=== PATIENT | female | born 1975 | race Caucasian/White ===

== ENCOUNTER 2022-01-22 15:47 | Outpatient (CLI) | payer MEDICAID, SELFPAY ==
--- NOTE | 2022-01-22 16:30 | CRLHL7_ITS ---
For Patients: As a result of the Century Cures Act, medical imaging exams and procedure reports are released immediately into your electronic medical record. You may view this report before your referring provider. If you have questions, please contact your health care provider. HISTORY: Knee pain. Decreased range of motion. TECHNIQUE: MRI right knee without contrast. COMPARISON: None. FINDINGS: Medial compartment: Medial meniscus: Borderline extruded but otherwise appears intact. Articular cartilage: No cartilage defects. Lateral compartment: Lateral meniscus: Tear of the anterior horn and anterior aspect of the body. Meniscus flap displaced superior to the body anterior horn junction. Meniscus has incomplete discoid morphology. Posterior horn is intact. Articular cartilage: No cartilage defects. Patellofemoral compartment: No cartilage defects. Ligaments: ACL: Intact. PCL: Intact. MCL: Intact. Lateral ligament complex: Intact. Extensor mechanism: Distal quadriceps and patellar tendons are intact. Medial and lateral patellar restraints are intact. No patellar subluxation. Joint space: Moderate size effusion. Mild synovitis. No joint bodies. Bones and soft tissues: No fracture. No marrow replacing process. No popliteal cyst. IMPRESSION: 1. Tear of incomplete discoid lateral meniscus. 2. No ligament tear. 3. No cartilage defects. 4. Knee joint effusion. Dictated by Kel Dunham MD @ 01/23/2022 12:59:16 PM (Electronically Signed)
== END 2022-01-22 15:48 | disposition home or self-care (01) ==
LOC: MRI 15:50
PROVIDERS: PCP Family Medicine; Visit Provider Family Medicine
DX: M25.561 Pain in right knee (principal); S83.281A Other tear of lateral meniscus, current injury, right knee, initial encounter; M25.461 Effusion, right knee
CPT/HCPCS: 73721

== ENCOUNTER 2022-04-02 12:43 | Outpatient (CLI) | payer MEDICAID, SELFPAY ==
--- OUTSIDE RECORDS SUMMARY | 2022-04-02 12:59 | XMS_ITS | Clinical Summary ---
:1975 Author Organization [facility] [place] [address] Care Team Providers Name Role Phone Gera Mcdowell MD Primary Care Provider [phone] Allergies Active Allergy Reactions Severity Noted Date Comments Citalopram Nausea And Vomiting 02/16/2008 Zonisamide Other - Describe In 11/13/2018 Cardiac palpitations and Comment Field dry mouth, dec reased urination, dizz y. Medications Medication Sig Dispensed Refills Start Date End Date Status albuterol (PROVENTIL) Inhale 3 mL via a 1 box 0 08/04/2017 Active 0.083 % neb nebulizer every 4 solutionIndications: hours if needed. Exacerbation of asthma, unspecified asthma severity, unspecified whether persistent Magnesium 200 mg tab Take 2 tablets by 0 10/02/2017 Active mouth once daily. riboflavin, vitamin Take by mouth. 0 10/02/2017 Active B2, 400 mg tab ondansetron (ZOFRAN Place 1 tablet on 30 tablet 1 11/21/2017 Active ODT) 8 mg the tongue 2 disintegrating times daily if tabletIndications: needed for Intractable migraine Nausea/Vomiting. with aura with status migrainosus albuterol HFA Inhale 2 Puffs by 18 g 12 05/05/2018 Active (VENTOLIN HFA) 90 mouth every 4 mcg/actuation hours if needed. inhalerIndications: Exacerbation of asthma, unspecified asthma severity, unspecified whether persistent Cholecalciferol, Take 1 tablet by 90 tablet 3 05/17/2018 Active Vitamin D3, (VITAMIN mouth once daily. D-3) 5,000 unit tab LORazepam (ATIVAN) 0.5 Take 1-2 tablets 30 tablet 0 07/10/2018 Active mg tabIndications: by mouth 2 times Panic attack daily if needed for Anxiety. naproxen (NAPROSYN) one tablet prm 0 06/04/2018 Active 500 mg tablet for migraines with zomig levothyroxine Take 1 tablet by 90 tablet 3 07/10/2018 Active (SYNTHROID) 112 mcg mouth once daily. tabletIndications: Hypothyroidism, unspecified type FLUoxetine (PROZAC) 40 Take 1 capsule by 90 capsule 1 07/10/19 19 Active mg capsuleIndications: mouth once daily. Generalized anxiety disorder gabapentin (NEURONTIN) Take 1 capsule by 90 capsule 0 11/14/19 19 Active 300 mg mouth at bedtime. capsuleIndications: Fibromyalgia EMGALITY PEN 120 mg/mL 0 05/31/2019 Active pnij cetirizine HCl (ZYRTEC 0 Active ORAL) tiZANidine (ZANAFLEX) 0 05/05/2019 Active 4 mg tablet artificial tears, peg Place 1 Drop into 15 mL 3 2020 Active 400-propylene glycol, both eyes 4 times (SYSTANE, PROPYLENE daily. GLYCOL,) 0.4-0.3 % drop ophthalmicIndications: Allergic conjunctivitis, bilateral, Dry eyes, bilateral metoprolol tartrate Take 1 tablet by 90 tablet 3 04/21/2020 Active (LOPRESSOR) 50 mg mouth 2 times tabletIndications: daily. Palpitations Coenzyme Q10 (Co Q-10) Take 1 Capsule 0 12/12/2021 Active 10 mg cap (10 mg) by mouth once daily. Ubrelvy 100 mg tab TAKE ONE TABLET 0 10/26/2021 Active tablet BY MOUTH NEEDED AT ONSET OF HEADACHE. MAY REPEAT IN 2 HOURS IF NOT RESOLVED. MAX DOSE 2 TABLETS IN 24 HOURS buPROPion (WELLBUTRIN Take 300 mg by 0 11/22/2021 Active XL) 300 mg mouth once daily. Extended-Release tablet multivitamin (Multiple Take 1 Tablet by 0 12/12/2021 Active Vitamins) tablet mouth once daily. Active Problems Problem Noted Date Intractable migraine with aura without status migraino dimple 07/10/2018 Fibromyalgia 07/10/2018 Hypothyroidism 04/13/2011 Obesity 08/31/2010 Dysthymic disorder 06/27/2010 Vitamin D deficiency 06/23/2010 Anxiety state, unspecified 09/15/2008 Unspecified asthma(493.90) 08/09/2006 Endometriosis, site unspecified 08/09/2006 Resolved Problems Problem Noted Date Resolved Date Unspecified hypothyroidism 04/23/2007 04/13/2011 Encounters Date Type Specialty Care Team Description 01/26/2022 Transcribe Orders Gera Mcdowell MD 01/09/2022 Emergency Miky Kan Sprain of medi jillian Petersen MD collateral liga ment of right knee, ini tial encounter (Prim maureen Dx) 01/09/2022 Travel from Last 3 Months Immunizations Name Administration Dates Next Due AMB Influenza, IIV3 (Age >=3 04/20/2011, 04/08/2009, 008 years)(Flu Clinic Only) AMB Influenza, IIV4 PF (=>6 mos 05/05/2015 Flulaval,Fluzone Fluarix)(Flu Clinic Only) Influenza A (H1N1), Inactivated 07/08/2009 Influenza A (H1N1), Inactivated (Age 0107/08/2009 >=3 Years) Influenza Virus, Unspecified 04/08/2009, 05/07/2008, 003 Influenza, IIV3 (Age >=3 years) 04/16/2013, 05/15/2012, 07/2009 Influenza, IIV4 06/16/2019, 04/10/2018, 03/28/2016, 05/26/2014 Tdap 07/10/2018, 01/31/2008 Family History Medical History Relation Name Comments Diabetes Brother 1 Diabetes Brother 2 Diabetes Child daughter Cancer Maternal Grandmother mets/unsure of primary Cancer-breast Maternal Grandmother Diabetes Maternal Uncle Thyroid Disease Mother hypo Cancer-breast Other 2 cousins on pat ernal side Cancer-breast Paternal Aunt 1 Cancer-breast Paternal Aunt 2 Cancer-breast Paternal Aunt 3 Relation Name Status Comments Brother 1 Brother 2 Child Father Alive Maternal Grandmother Maternal Uncle Mother Alive Other Paternal Aunt 1 Paternal Aunt 2 Paternal Aunt 3 Social History Tobacco Use Types Packs/Day Years Used Date Never Smoker Smokeless Tobacco: Never Used Tobacco Cessation: Counseling Given: Yes Alcohol Use Standard Drinks/Week Comments No 0 (1 standard drink = 0.6 oz pure alcoho l) Sex Assigned at Date Recorded Not on file Obstetrics History Para Term AB IAB SAB Ectopic Multiple Living Live Births 6 3 3 0 0 0 0 0 3 3 Date Outcome GA Total Labor/2nd/3rd Weight Sex Delivery Anes PTL Agueda A 1 A5 Name Clin Labor Term Term Term 05/01 40w 3.03 kg F Vag Claudette Pen 0d (6 lb ng walker 11 oz) Delivery Location: [place], [place] 07/01/1998 39w0d 3.4 kg (7 lb 8 oz) M Vag L iving Brady Delivery Location[place], [place] 09/19/2001 39w0d F Vag IV Meds Living Alejandra Mcdowell Delivery Location: [facility] Last Filed Vital Signs Vital Sign Reading Time Taken Comments Blood Pressure 129/85 01/09/2022 11:31 AM CDT Pulse 78 01/09/2022 11:31 AM CDT Temperature 36 ??C (96.8 ??F) 01/09/2022 11:31 AM CDT Respiratory Rate 20 01/09/2022 11:31 AM CDT Oxygen Saturation 96% 01/09/2022 11:31 AM CDT Inhaled Oxygen Concentration - - Weight 113.4 kg (250 lb) 01/09/2022 11:28 AM CDT Height 165.1 cm (5' 5) 01/09/2022 11:28 AM CDT Body Mass Index 41.6 01/09/2022 11:28 AM CDT Plan of Treatment Health Maintenance Due Date Last Done Comments Pneumococcal series for age 19-64 1982 (1 - PCV) Hepatitis C screening for age 1004/15/1994 18-79 BMI (ht and wt on same day) for 06/16/2020 06/16/2019, 10/29, age 18+ 07/10/2018, Additional history exists Depression screening for age 12+ 06/16/2020 06/16/2019, , 07/10/2018, Additional history exists Colonoscopy through age 75 2021 Mammogram for age 45-75 2021 01/02/2018, 12/21/2016, 09/13/2015 Influenza for age 9-49 03/01/2022 06/16/2019, 04/10/2018, 03/28/2016, Additional history exists Lipids for age 45-75 07/09/2022 07/09/2017, 06/22/2010, 10/21/2007 Tetanus booster 07/10/2028 07/10/2018, 01/31/2008 Tdap Completed 07/10/2018, 01/31/2008 COVID-19 vaccine series Completed 05/09/2021, 09/23/2020, 08/26/2020 Procedures Procedure Name Priority Date/Time Associated Diagnosis Comme nts XR TIBIA AND FIBULA STAT 01/09/2022 12:46 PM R esults for this 2 VIEWS RIGHT CDT procedure are in the results section. XR KNEE 3 VIEWS STAT 01/09/2022 12:45 PM Resul ts for this RIGHT CDT procedure are i n the results section. from Last 3 Months Results XR TIBIA AND FIBULA 2 VIEWS RIGHT (01/09/2022 12:46 PM CDT) Anatomical Region Laterality Modality Tibia Digital Radiography Specimen (Source) Anatomical Collection Method Collection Time Re ceived Time Location / / Volume Laterality 01/09/2022 1:42 PM CDT Narrative 01/09/2022 1:42 PM CDT For Patients: ??As a result of the Cures Act, medical imaging exams and procedure reports are released immediately into your electronic medical record. ??You may view this report before you r referring provider. ??If you have ques tions, please contact your health care provider. Indication: Injury Technique: Two views of the tibia and fibula were a cquired. Comparison: None prior to today Findings: The knee is not included in this study. Please review the separate report of the knee from the same day. Regarding the tibia and fibula distal to the knee, no abnormality is noted. Impression: Normal plain film examination the right tibia and fibula. Please reviewed this separate knee report of the same day Dictated by Rasheed Bowden MD @ 2 1:42:41 PM (Electronically Signed) Procedure Note Rasheed Bowden MD - 01/09/2022Fo rmatting of this note might be different from the original. For Patients: As a result of the Cures Act, medical imaging exams and procedure reports are released immediately into your electronic medical record. You may view this report before your referring provider. If you have questions, please contact [facility] health care provider. Indication: Injury Technique: Two views of the tibia and fibula were a cquired. Comparison: None prior to today Findings: The knee is not included in this study. Please review the separate report of the knee from the same day. Regarding the tibia and fibula distal to the knee, no abnormality is noted. Impression: Normal plain film examination the right tibia and fibula. Please reviewed this separate knee report of the same day Dictated by Rasheed Bowden MD @ 2 1:42:41 PM (Electronically Signed) Miky Kan MD GENERAL IMAGING XR KNEE 3 VIEWS RIGHT (01/09/2022 12:45 PM CDT) Anatomical Region Laterality Modality KNEES, KNEE R Digital Radiography Specimen (Source) Anatomical Collection Method Collection Time Re ceived Time Location / / Volume Laterality 01/09/2022 1:40 PM CDT Narrative 01/09/2022 1:40 PM CDT For Patients: ??As a result of the Cures Act, medical imaging exams and procedure reports are released immediately into your electronic medical record. ??You may view this report before you r referring provider. ??If you have ques tions, please contact your health care provider. Indication: Knee twisting injury Comparison: None available. Technique: Standing AP, lateral, and sunrise views of the right knee were obtained Findings: There is no displaced fracture or disloc ation. There is likely mild medial compartmenta l joint space narrowing with minimal tibial spine spurring. The soft tissues are unremarkable. Impression: Mild tricompartmental degenerative lewis es without acute osseous abnormality. Dictated by Rasheed Bowden MD @ 2 1:40:22 PM (Electronically Signed) Procedure Note Rasheed Bowden MD - 01/09/2022Fo rmatting of this note might be different from the original. For Patients: As a result of the [employer] Cures Act, medical imaging exams and procedure reports are released immediately into your electronic medical record. You may view this report before your referring provider. If you have questions, please contact yo health care provider. Indication: Knee twisting injury Comparison: None available. Technique: Standing AP, lateral, and sunrise views of the right knee were obtained Findings: There is no displaced fracture or disloc ation. There is likely mild medial compartmenta l joint space narrowing with minimal tibial spine spurring. The soft tissues are unremarkable. Impression: Mild tricompartmental degenerative lewis es without acute osseous abnormality. Dictated by Rasheed Bowden MD @ 2 1:40:22 PM (Electronically Signed) Miky Kan MD GENERAL IMAGING from Last 3 Months Insurance Payer Benefit Plan / Subscriber ID Effective Dates Phone Addre ss Type Group MATT GUTIERREZ [place] [id number] 2021-Present [address] [place] [address] LINNEA GUTIERREZ [place] [id number] 2021-Present [address] [place] [address] [employer] [place] [id number] 2015-Present [address] [place] [address] Care Teams Architect Naval Relationship Specialty Start Date End Date Gera Mcdowell MD PCP - General Family Practice 01/09/221999 [place] [address]
--- NOTE | 2022-04-02 13:00 | MR_ITS ---
[address] [address] Phone:?[phone] Fax:?[phone] Referring Physician Information: Fransico Carter M.D. [address] [facility] [address] Phone:?[phone] Fax:?[phone] Patient:Eve Davila D.O.B:?1975 Sex:?Female Phone:?[phone] [facility] MRN:?[id number] Exam Date:?04/02/2022 ? EXAM: MRI of the RIGHT SHOULDER, without contrast CLINICAL HISTORY: Right shoulder pain. Evaluate for rotator cuff pathology. COMPARISONS: None available. TECHNICAL: MRI sequences of the right shoulder: Axials: PD, T2 Coronals: PD, STIR, T2 Sagittals: PD, T2 SEDATION: None CONTRAST: None FINDINGS: Bones: No fracture or suspicious bone marrow signal abnormality. Coracoacromial arch: Acromion: No os acromiale. Type I-II acromion. Acromiohumeral space: The bony distance is unremarkable. Coracohumeral space: The bony distance is unremarkable. Acromioclavicular joint: Focal moderate to marked bone marrow edema within the distal clavicle best seen on coronal series 4 images 14 through 15 in the setting of mild acromioclavicular joint degenerative changes. Coracoclavicular ligament: The coracoclavicular ligament is intact. Rotator cuff muscles/tendons: Supraspinatus and infraspinatus: There is interstitial delamination of the supraspinatus tendon and moderate to marked tendinopathy at the junction of the supraspinatus and infraspinatus tendons. There is no atrophy of the supraspinatus or infraspinatus muscles. Teres minor: The teres minor tendon and muscle are intact. Subscapularis: The subscapularis tendon and muscle are intact. Labrum: No evidence of labral tear although evaluation is suboptimal because of nonarthrogram technique. Proximal biceps tendon, long head and short heads: The long and short heads of the proximal biceps tendon are intact. Glenohumeral joint: Physiologic amount of joint fluid. No full-thickness chondral defect or subchondral bone marrow edema/cystic change is seen. No convincing evidence of capsular edema or thickening although evaluation is suboptimal because of lack of joint distention. Bursae: Subacromial/subdeltoid: No convincing subacromial bursal thickening/bursitis. Subcoracoid: Slight bursitis. IMPRESSION: 1. Interstitial delamination of the supraspinatus tendon and moderate to marked tendinopathy at the junction of the supraspinatus and infraspinatus tendons. 2. No well-defined fluid intense retracted rotator cuff tendon tear or rotator cuff muscular atrophy. 3. Focal moderate to marked distal clavicular bone marrow edema in the setting of mild acromioclavicular joint osteoarthritis. Correlate with any point tenderness and clinical signs and symptoms. 4. Slight subacromial/subdeltoid bursitis. 5. Intact biceps tendon. RCB Electronically signed on 04/02/2022 2:33:00 PM by Kev Bobby M.D.
== END 2022-04-02 12:44 | disposition home or self-care (01) ==
PROVIDERS: PCP Family Medicine; Visit Provider Orthopaedic Surgery
DX: M25.511 Pain in right shoulder (principal); M75.101 Unspecified rotator cuff tear or rupture of right shoulder, not specified as traumatic; M75.51 Bursitis of right shoulder
CPT/HCPCS: 73221

== ENCOUNTER 2022-04-16 08:30 | Outpatient (CLI) | payer MEDICAID, SELFPAY ==
--- OUTSIDE RECORDS SUMMARY | 2022-04-16 08:36 | XMS_ITS | Clinical Summary ---
:1975 Author Organization [employer] [facility] [place] [address] Care Team Providers Name Role Phone Gera Mcdowell MD Primary Care Provider [phone] Allergies Active Allergy Reactions Severity Noted [...] Description 01/26/2022 Transcribe Orders Gera Mcdowell MD from Last 3 Months Immunizations Name Administration [...] lb ng walker 11 oz) Delivery Location: [place], [place] 07/01/1998 39w0d 3.4 kg (7 lb 8 oz) M Vag L iving Brady Delivery Location: [place], [place] 09/19/2001 39w0d F Vag IV Meds [...] for age 45-75 2021 01/02/2018, 12/21/2016, 09/13/2015 COVID-19 vaccine series (4 - 07/04/2021 05/09/2021, 021, Booster for Moderna series) 08/26/2020 Influenza for age 9-49 03/01/2022 06/16/2019, 04/10/2018, 03/28/2016, Additional history exists Lipids for age 45-75 07/09/2022 07/09/2017, 06/22/2010, 10/21/2007 Tetanus booster 07/10/2028 07/10/2018, 01/31/2008 Tdap Completed 07/10/2018, 01/31/2008 Results Not on filefrom Last 3 Months Insurance Payer Benefit Plan / Subscriber ID Effective Dates Phone Addre ss Type Group MATT GUTIERREZ [place] [id number] 2021-Present [address] [place] [address] MATT GUTIERREZ [place] [id number] 2021-Present [address] [place] [address] [employer] [place] [id number] 2015-Present [address] [place] [address] Care Teams Dermatology Procedural Physician Relationship Specialty Start Date End Date Gera Mcdowell MD PCP - General Family Practice 01/09/221999 [place] [address]
[2022-04-16 14:39] LABS: SARS PCR* Negative SARS-CoV-2 (Negative)
== END 2022-04-16 08:31 | disposition home or self-care (01) ==
PROVIDERS: PCP Family Medicine; Visit Provider Family Medicine
DX: Z20.822 Contact with and (suspected) exposure to COVID-19 (principal)
CPT/HCPCS: 87635

== ENCOUNTER 2022-04-17 05:59 | Day surgery (SDC) | payer MEDICAID, SELFPAY ==
[2022-04-17] VITALS (13 sets, daily range): BP systolic 80–134; BP diastolic 50–91; PULSE 59–72; RESP 12–18; TEMP 36.1–36.5; O2SAT 95–100; BMI 46.2
[2022-04-17] MEDS: SODIUM CHLORIDE 0.9 % (FLUSH) 10 ML SYRINGE IVF (06:34)
[2022-04-17] MEDS: LACTATED RINGERS 1000 ML 1,000 ML 100 ML IV (06:34)
[2022-04-17] MEDS: CEFAZOLIN 1 GM inj 3 GM IVP (07:15)
[2022-04-17] MEDS: BUPIVACAINE 0.25% 30 ML INJECTION (07:49)
--- NOTE | 2022-04-17 07:54 | PM.ORPRC ---
Procedure Note Date of procedure: 04/17/22 Procedure: SURGEON: Fransico Carter MD ADJUNCT FACULTY FOR MEDICAL TERMINOLOGY: Jenna Cline PA-C PREOPERATIVE DIAGNOSIS: Right knee lateral meniscus tear POSTOPERATIVE DIAGNOSIS: Right knee lateral meniscus tear NAME OF OPERATION: Right knee arthroscopic partial lateral meniscectomy ANESTHESIA: Spinal ESTIMATED BLOOD LOSS: 0 mL COMPLICATIONS: None SPECIMENS: None DRAINS: None PREOPERATIVE ANTIBIOTICS: Ancef 3 gram INDICATIONS: The patient is a 47-year-old female with a history of right knee pain. MRI scan is consistent with a lateral meniscus tear. Despite appropriate nonoperative management, including activity modification, antiinflammatories, [id number] pain medication, bracing, physical therapy, and injections they continue to have pain and disability. Operative intervention was offered. The risks, benefits and expected outcomes were discussed in detail. These included but were not limited to: Infection, bleeding, injury to blood vessel or nerve, venous thromboembolism. All questions were answered to their satisfaction. PROCEDURE: Spinal anesthesia was administered. The patient was placed supine on the operating room table. The right lower extremity was prepped and draped in the usual sterile fashion. The limb was exsanguinated with the Pedro bandage. The pneumatic tourniquet was inflated to 300 mmHg. A standard anterolateral portal was established. The arthroscope was introduced. The working portal was established anteromedially. Diagnostic arthroscopy was performed with findings as follows: The suprapatellar pouch is normal. Articular surface on the patella is normal. Articular surface on the trochlea is normal. The medial gutter is normal. The medial compartment shows normal articular cartilage on the medial femoral condyle and medial tibial plateau. The medial meniscus with. The notch shows the ACL to be intact. The lateral compartment shows normal articular cartilage on the lateral femoral condyle and lateral tibial plateau. The lateral meniscus has a small radial tear of the midbody with some undersurface horizontal cleavage tearing. The lateral gutter is normal. The midbody of the lateral meniscus was debrided to a stable base with the shaver through the anteromedial portal. Arthroscopic instruments were removed, the portal sites were Steri-Stripped closed, the knee was infiltrated with 30 mL of 0.25% Marcaine without epinephrine. A dry dressing was applied, the tourniquet was released. Sponge and needle counts were correct x 2. The patient tolerated the procedure well. There were no apparent complications. They were carefully transferred to the hospital bed and taken to the postanesthesia care unit in satisfactory condition. PLAN: The patient will be discharged to home. They may weightbear as tolerates. Range of motion will be unrestricted. They will follow up in the office next week for a wound check.
--- NOTE | 2022-04-17 08:06 | W.ANESCHARGE ---
Anesthesia Charges Start Date/Time Anesthesia Start Date: 04/17/22 Anesthesia Start Time: 07:03 Stop Date/Time Anesthesia Stop Date: 04/17/22 Anesthesia Stop Time: 08:02 Summary Emergency: No
--- NOTE | 2022-04-17 08:29 | SUR.PHASEI ---
PT. [facility], TRANSFER PT. TO [facility] VIA CART.
--- NOTE | 2022-04-17 08:30 | W.ANESCHARGE ---
Anesthesia Charges Start Date/Time Anesthesia Start Date: 04/17/22 Anesthesia Start Time: 07:03 Stop Date/Time Anesthesia Stop Date: 04/17/22 Anesthesia Stop Time: 08:02 Summary Emergency: No
== END 2022-04-17 09:30 | disposition home or self-care (01) ==
PROVIDERS: PCP Family Medicine; Visit Provider Orthopaedic Surgery
PROC: (CPT 29870; principal; 2022-04-17 07:00)
DX: M23.261 Derangement of other lateral meniscus due to old tear or injury, right knee (principal)
CPT/HCPCS: 29881; 01400; J0690; J1885; J2250; J2704; J3010; J3490; J7120

== ENCOUNTER 2023-01-17 13:20 | Outpatient (CLI) | payer MEDICAID, SELFPAY ==
--- NOTE | 2023-01-17 13:40 | CRLHL7_ITS ---
For Patients: As a result of the Century Cures Act, medical imaging exams and procedure reports are released immediately into your electronic medical record. You may view this report before your referring provider. If you have questions, please contact your health care provider. BILATERAL SCREENING MAMMOGRAM WITH COMPUTER-AIDED DETECTION AND TOMOSYNTHESIS TECHNIQUE: CC and MLO views were obtained. These mammographic images have been obtained using full-field digital technique. These mammographic images were interpreted with the benefit of computer-aided detection. Breast Tomosynthesis was used in this interpretation. COMPARISON FILM: 11/28/21, 06/27/20, 06/20/19. FINDINGS: There are scattered areas of fibroglandular density IMPRESSION: There is no radiographic evidence for malignancy. ASSESSMENT: BI-RADS Category 2: Benign RECOMMENDATION: Routine screening mammogram in 1 year. A lay language report of this examination will be provided to the patient. Zac Whyte M.D. Diagnostic/Nuclear Medicine Radiologist [email or web address] SUDHAKAR/Dictated by: Zac Whyte MD @ 01/18/2023 9:07:00 AM (Electronically Signed)
== END 2023-01-17 13:21 | disposition home or self-care (01) ==
LOC: MAMMO 13:22
PROVIDERS: PCP Family Medicine; Visit Provider Family Medicine
DX: Z12.31 Encounter for screening mammogram for malignant neoplasm of breast (principal)
CPT/HCPCS: 77063; 77067

== ENCOUNTER 2023-10-21 13:10 | Outpatient (CLI) | payer MEDICAID, SELFPAY ==
--- OUTSIDE RECORDS SUMMARY | 2023-10-21 13:12 | XMS_ITS | Clinical Summary ---
Author Name Unknown Organization [employer] [facility] Address [place], [place] [address] Care Team Providers Care Dye [facility] Hand Name Role Phone Gera Mcdowell MD Primary Care Provider + Allergies Active Allergy Reactions Criticality Noted Date Comments Citalopram Nausea And Vomiting 02/16/2008 Zonisamide Other - Describe In Comment Field 11/13/2018 Cardiac palpitations and dry mouth, decreased urination, dizzy. Medications Medication Sig Dispensed Refills Start Date End Date Status albuterol (PROVENTIL) 0.083 % neb solutionIndications:E xacerbation of asthma, unspecified asthma severity, unspecified whether persistent Inhale 3 mL via a nebulizer every 4 hours if needed. 1 box 08/04/2017 Active Magnesium 200 mg tab Take 2 tablets by mouth once daily. 0 10/02/2017 Active riboflavin, vitamin B2, 400 mg tab Take by mouth. 0 10/02/2017 Active ondansetron (ZOFRAN ODT) 8 mg disintegrating tabletIndications:Int ractable migraine with aura with status migrainosus Place 1 tablet on the tongue 2 times daily if needed for Nausea/Vomiting. 30 tablet 1 11/21/2017 Active albuterol HFA (VENTOLIN HFA) 90 mcg/actuation inhalerIndications:Ex acerbation of asthma, unspecified asthma severity, unspecified whether persistent Inhale 2 Puffs by mouth every 4 hours if needed. 18 g 12 05/05/2018 Active Cholecalciferol, Vitamin D3, (VITAMIN D-3) 5,000 unit tab Take 1 tablet by mouth once daily. 90 tablet 3 05/17/2018 Active LORazepam (ATIVAN) 0.5 mg tabIndications:Panic attack Take 1-2 tablets by mouth 2 times daily if needed for Anxiety. 30 tablet 07/10/2018 Active naproxen (NAPROSYN) 500 mg tablet one tablet prm for migraines with zomig 06/04/2018 Active levothyroxine (SYNTHROID) 112 mcg tabletIndications:Hyp othyroidism, unspecified type Take 1 tablet by mouth once daily. 90 tablet 3 07/10/2018 Active FLUoxetine (PROZAC) 40 mg capsuleIndications:Ge neralized anxiety disorder Take 1 capsule by mouth once daily. 90 capsule 1 07/10/2018 Active gabapentin (NEURONTIN) 300 mg capsuleIndications:Fi bromyalgia Take 1 capsule by mouth at bedtime. 90 capsule 11/13/2018 Active EMGALITY PEN 120 mg/mL pnij 05/31/2019 Active cetirizine HCl (ZYRTEC ORAL) Active tiZANidine (ZANAFLEX) 4 mg tablet 05/05/2019 Active artificial tears, peg 400-propylene glycol, (SYSTANE, PROPYLENE GLYCOL,) 0.4-0.3 % drop ophthalmicIndications :Allergic conjunctivitis, bilateral,Dry eyes, bilateral Place 1 Drop into both eyes 4 times daily. 15 mL 3 2020 Active metoprolol tartrate (LOPRESSOR) 50 mg tabletIndications:Pal pitations Take 1 tablet by mouth 2 times daily. 90 tablet 3 04/21/2020 Active Coenzyme Q10 (Co Q-10) 10 mg cap Take 1 Capsule (10 mg) by mouth once daily. 0 12/12/2021 Active Ubrelvy 100 mg tab tablet TAKE ONE TABLET BY MOUTH NEEDED AT ONSET OF HEADACHE. MAY REPEAT IN 2 HOURS IF NOT RESOLVED. MAX DOSE 2 TABLETS IN 24 HOURS 10/26/2021 Active buPROPion (WELLBUTRIN XL) 300 mg Extended-Release tablet Take 300 mg by mouth once daily. 11/22/2021 Active multivitamin (Multiple Vitamins) tablet Take 1 Tablet by mouth once daily. 0 12/12/2021 Active Active Problems Problem Noted Date Diagnosed Date Intractable migraine with aura without status mi grainosus 07/10/2018 Fibromyalgia 07/10/2018 Hypothyroidism 04/13/2011 Obesity 08/31/2010 Dysthymic disorder 06/27/2010 Vitamin D deficiency 06/23/2010 Anxiety state, unspecified 09/15/2008 Unspecified asthma(493.90) 08/09/2006 Endometriosis, site unspecified 08/09/2006 Resolved Problems Problem Noted Date Diagnosed Date Resolved Date Unspecified hypothyroidism 04/23/2007 1 Immunizations Name Administration Dates Next Due AMB Influenza, IIV3 (Age >=3 years)(Flu Clinic Only) 04/20/2011,04/08/2009,05/07/2008 AMB Influenza, IIV4 PF (=>6 mos Flulaval,Fluzone Fluarix)(Flu Clinic Only) 05/05/2015 Influenza A (H1N1), Inactivated 07/08/2009 Influenza A (H1N1), Inactiva ramses (Age >=3 Years) 07/08/2009 Influenza Virus, Unspecified 04/08/2009,05/07/20 08,06/07/2003 Influenza, IIV3 (Age >=3 years) 04/16/2013,05/15,05/01/2010 Influenza, IIV4 06/16/2019,,03/28/2016,2013 Tdap 07/10/2018,01/31/2008 Family History Medical History Relation Name Comments Diabetes Brother 1 Diabetes Brother 2 Diabetes Child daughter Cancer Maternal Grandmother mets/un sure of primary Cancer-breast Maternal Grandmother Diabetes Maternal Uncle Thyroid Disease Mother hypo Cancer-breast Other 2 cousins on p aternal side Cancer-breast Paternal Aunt 1 Cancer-breast Paternal Aunt 2 Cancer-breast Paternal Aunt 3 Relation Name Status Comments Brother 1 Brother 2 Child Father Alive Maternal Grandmother Maternal Uncle Mother Alive Other Paternal Aunt 1 Paternal Aunt 2 Paternal Aunt 3 Social History Tobacco Use Types Packs/Day Years Used Date Smoking Tobacco: Never Smokeless Tobacco: Never Tobacco Cessation:Counseling Given: Yes Alcohol Use Standard Drinks/Week Comments No 0 (1 standard drink = 0.6 oz pur e alcohol) PHQ-2 Answer Date Recorded PHQ-2 Score 3 06/16/2019 Social Connections Answer Date Recorded Frequency of Communication with Friends and Fami ly Not on file 07/01/2021 Financial Resource Strain Answer Date R ecorded Difficulty of Paying Living Expenses Not on file 07/01/2021 Difficulty of Paying Living Expenses Not on file 07/01/2021 Sex and Gender Information Value Date Recorded Sex Assigned at Not on file Gender Identity Not on file Sexual Orientation Not on file Obstetrics History Para Term AB IAB SAB Ectopic Multiple Livin g Live Births 6 3 3 0 0 0 0 0 3 3 Date Outcome GA Total Labor Labor/2nd/3rd Weight Sex Delivery Anes PTL Agueda A1 A5 Name Cl in Term Term Term 05/01 40w 0d 3.03 kg (6 lb 11 oz) F Vag Claudette ng Magda walker Delivery Location:[place], [place] 07/01 39w 0d 3.4 kg (7 lb 8 oz) M Vag Claudette ng Matth ew Delivery Location:[place], [place] 09/19 39w 0d F Vag IV Meds Claudette ng Juany igh McInt yre Delivery Location:[facility] Last Filed Vital Signs Vital Sign Reading Time Taken Comments Blood Pressure 129/85 01/09/2022 11:31 AM CDT Pulse 66 07/16/2023 8:32 AM ESTHETICIAN PERMANENT MAKEUP ARTIST Temperature 36 ??C (96.8 ??F) 01/09/2022 11:31 AM CDT Respiratory Rate 20 01/09/2022 11:31 AM CDT Oxygen Saturation 95% 07/16/2023 8:32 AM ESTHETICIAN PERMANENT MAKEUP ARTIST Inhaled Oxygen Concentration - - Weight 123.8 kg (273 lb) 07/16/2023 8:32 AM ESTHETICIAN PERMANENT MAKEUP ARTIST Height 165.1 cm (5' 5) 01/09/2022 11:28 AM CDT Body Mass Index 45.43 01/09/2022 11:28 AM CDT Plan of Treatment Health Maintenance Due Date Last Done Comments HIV for age 15-65 1991 Hepatitis C screening for age 18-79 1994 BMI (ht and wt on same day) for age 18+ 06/16/2020 06/16/2019, 11/13/2018, 07/10/2018, Additional history exists Depression screening for age 12+ 06/16/2020 06/16/2019, 11/13/2018, 07/10/2018, Additional history exists Colonoscopy through age 75 2021 Mammogram for age 45-75 2021 01/03/20 18, 12/21/2016, 09/13/2015 Lipids for age 45-75 07/09/2022 07/09/2017, 06/22/2010, 10/21/2007 Influenza for age 9-49 03/01/2024 9, 04/10/2018, 03/28/2016, Additional history exists Tetanus booster 07/10/2028 07/10/2018, 01/31/2008 Tdap Completed 07/10/2018, 01/31/2008 COVID-19 vaccine series Completed 05/10/20 23, 03/15/2022, 05/09/2021, Additional history exists Pneumococcal series for age 6-64 Aged Out No longer eligible based on patient's age to complete this topic Procedures Procedure Name Priority Date/Time Associated Diagnosis Comments XR MAMMO BILAT DIAGNOSTIC Routine 01/02/2018 10:07 AM CDT Inverted nipple LIPID PANEL W REFLEX MEASURED LDL Routine 07/09/2017 9:57 AM ESTHETICIAN PERMANENT MAKEUP ARTIST Screening cholesterol level from Last 3 Months or Most Recently Relevant to Health Maintenance Results * XR MAMMO BILAT DIAGNOSTIC (01/02/2018 10:07 AM CDT) Anatomical Region Laterality Modality BREASTS, Breast Left, Breast Right Bilateral Mammography, Other 01/02/2018 10:2 2 AM CDT Impressions 01/02/2018 1:43 PM CDT No evidence of malignancy. The new developing density in the RIGHT breast appears to be due to normal glandular tissue. Patient has been on longstanding thyroid medications and denies any other hormonal changes or hormonal medications. Recommendation:If there is reoccuring or persistent nipple inversion recommend a surgical consultation. Otherwise also recommend annual screening mammography. BI-RADS category 2: Benign. Dictated by: Austin Rodarte MD @01/02/2018 10:22:16 AM Narrative 01/02/2018 1:43 PM CDT BILATERAL DIGITAL DIAGNOSTIC MAMMOGRAM WITH COMPUTER-AIDED DETECTION, 01/02/2018 RIGHT BREAST ULTRASOUND, 01/02/2018 INDICATION: Intermittent BILATERAL nipple inversion and milky breast discharge. TECHNIQUE: BILATERAL diagnostic mammogram and RIGHT breast ultrasound. COMPARISON: Mammogram 12/21/2016 and 09/13/2015. FINDINGS: Scattered fibroglandular densities in both breasts. Normal-appearing parenchyma in the upper outer LEFT breast is similar in density and configuration when compared to previous. New diffuse glandular density in the upper-outer and superior RIGHT breast when compared to the previous studies when the breast was nearly entirely fatty replaced. No suspicious mass or architectural distortion. No malignant calcifications in either breast. Ultrasound of the RIGHT breast was performed because of the new breast density. The findings appear to be consistent with normal glandular breast tissue. No cyst, solid mass or other ultrasound abnormality identified. No abnormality in the retroareolar spcae. Kandy Malloy NP MAMMO * LIPID PANEL W REFLEX MEASURED LDL (07/09/2017 9:57 AM ESTHETICIAN PERMANENT MAKEUP ARTIST) Pathologist [facility] CHOLESTEROL,TOTAL 193 100 - 199 mg/dL 07/09/2017 10:43 AM ESTHETICIAN PERMANENT MAKEUP ARTIST [facility] TRIGLYCERIDES 136 <150 mg/dL 07/09/2017 10:43 AM ESTHETICIAN PERMANENT MAKEUP ARTIST [facility] HDL CHOLESTEROL 49 >40 mg/dL 8 10:43 AM ESTHETICIAN PERMANENT MAKEUP ARTIST [facility] NON-HDL CHOLESTEROL 144 <145 mg/dl 07/09/2017 10:43 AM ESTHETICIAN PERMANENT MAKEUP ARTIST [facility] CHOL/HDL RATIO 3.94 <4.50 07/09/2017 10:43 AM ESTHETICIAN PERMANENT MAKEUP ARTIST [facility] LDL CHOLESTEROL 117 <=130 mg/dL 07/09/2017 10:43 AM ESTHETICIAN PERMANENT MAKEUP ARTIST [facility] PROVIDER ORDERED STATUS RANDOM 07/09/2017 10:43 AM ESTHETICIAN PERMANENT MAKEUP ARTIST [facility] Blood BLOOD SPECIMEN / Unknown Venipuncture / Unknown 07/09/2017 9:57 AM ESTHETICIAN PERMANENT MAKEUP ARTIST 07/09/2017 9:57 AM ESTHETICIAN PERMANENT MAKEUP ARTIST Kandy Malloy NP CHEMISTRY [facility] [address] [place] [address] from Last 3 Months or Most Recently Relevant to Health Maintenance Care Teams [facility] Hand Relationship Specialty Start Date End Date Gera Mcdowell MD [address] [place] [address] PCP - General Family Practice 01/09/22
== END 2023-10-21 13:11 | disposition home or self-care (01) ==
LOC: FBOREF 13:10
PROVIDERS: PCP Family Medicine; Visit Provider Family Medicine
DX: E03.9 Hypothyroidism, unspecified (principal)
CPT/HCPCS: 84443

== ENCOUNTER 2024-03-26 14:32 | Outpatient (CLI) | payer MEDICAID, SELFPAY ==
--- OUTSIDE RECORDS SUMMARY | 2024-03-26 14:35 | XMS_ITS | Clinical Summary ---
Author Organization [employer] [facility] [employer] [facility] Address [place], [place] [address] Care Team Providers Care Planning Assistant Name Role Phone Gera Mcdowell MD Primary [...] Outcome GA Total Labor Labor/2nd/3rd Weight Sex Type Anes PTL Agueda A1 A5 Name Clin Term Term Term 1997 40w 0d 3.03 kg (6 lb 11 oz) F Vag Livin g Pennij o Delivery Location:[place], [place] [address] 39w 0d 3.4 kg (7 lb 8 oz) M Vag Livin g Matthe w Delivery Location:[place], [place] [address] 39w 0d F Vag IV Meds Livin g Kaylei gh McInty re Delivery Location:[facility] Last Filed Vital Signs Vital Sign Reading Time Taken Comments Blood Pressure 129/85 01/09/2022 11:31 AM CDT Pulse 66 07/16/2023 8:32 AM CREDIT RISK REVIEW OFFICER Temperature 36 ??C (96.8 ??F) 01/09/2022 11:31 AM CDT Respiratory Rate 20 01/09/2022 11:31 AM CDT Oxygen Saturation 95% 07/16/2023 8:32 AM CREDIT RISK REVIEW OFFICER Inhaled Oxygen Concentration - - Weight 123.8 kg (273 lb) 07/16/2023 8:32 AM CREDIT RISK REVIEW OFFICER Height 165.1 cm (5' 5) 01/09/2022 11:28 [...] for age 45-75 07/09/2022 07/09/2017, 06/22/2010, 10/21/2007 COVID-19 vaccine series ( season) 2024 05/10/2023, 03/15/2022, 05/09/2021, Additional history exists Influenza for age 9-49 03/01/2024 9, 04/10/2018, 03/28/2016, Additional history exists Tetanus booster 07/10/2028 07/10/2018, 01/31/2008 Tdap Completed 07/10/2018, 01/31/2008 Pneumococcal series for age 6-64 Aged Out No longer eligible based on patient's age to complete this topic Procedures Procedure Name Priority Date/Time Associated Diagnosis Comments XR MAMMO BILAT DIAGNOSTIC Routine 01/02/2018 10:07 AM CDT Inverted nipple LIPID PANEL W REFLEX MEASURED LDL Routine 07/09/2017 9:57 AM CREDIT RISK REVIEW OFFICER Screening cholesterol level from Last 3 Months [...] W REFLEX MEASURED LDL (07/09/2017 9:57 AM CREDIT RISK REVIEW OFFICER) CHOLESTEROL,TOTAL 193 100 - 199 mg/dL 07/09/2017 10:43 AM CREDIT RISK REVIEW OFFICER [facility] TRIGLYCERIDES 136 <150 mg/dL 07/09/2017 10:43 AM CREDIT RISK REVIEW OFFICER [facility] HDL CHOLESTEROL 49 >40 mg/dL 8 10:43 AM CREDIT RISK REVIEW OFFICER [facility] NON-HDL CHOLESTEROL 144 <145 mg/dl 07/09/2017 10:43 AM CREDIT RISK REVIEW OFFICER [facility] CHOL/HDL RATIO 3.94 <4.50 07/09/2017 10:43 AM CREDIT RISK REVIEW OFFICER [facility] LDL CHOLESTEROL 117 <=130 mg/dL 07/09/2017 10:43 AM CREDIT RISK REVIEW OFFICER [facility] PROVIDER ORDERED STATUS RANDOM 07/09/2017 10:43 AM CREDIT RISK REVIEW OFFICER [facility] Blood BLOOD SPECIMEN / Unknown Venipuncture / Unknown 07/09/2017 9:57 AM CREDIT RISK REVIEW OFFICER 07/09/2017 9:57 AM CREDIT RISK REVIEW OFFICER [place] [address] from Last 3 Months or Most Recently Relevant to Health Maintenance Care Teams Planning Assistant Relationship Specialty Start Date End Date Gera Mcdowell MD [address] [place] [address] PCP - General Family Practice 01/09/22
--- NOTE | 2024-03-26 14:40 | CRLHL7_ITS ---
For Patients: As a result of the Century Cures Act, medical imaging exams and procedure reports are released immediately into your electronic medical record. You may view this report before your referring provider. If you have questions, please contact your health care provider. BILATERAL SCREENING MAMMOGRAM WITH COMPUTER-AIDED DETECTION AND TOMOSYNTHESIS TECHNIQUE: CC and MLO views were obtained. These mammographic images have been obtained using full-field digital technique. These mammographic images were interpreted with the benefit of computer-aided detection. Breast Tomosynthesis was used in this interpretation. COMPARISON FILM: 01/17/23, 11/28/21, 06/20/19. FINDINGS: There are scattered areas of fibroglandular density. IMPRESSION: There is no radiographic evidence for malignancy. ASSESSMENT: BI-RADS Category 2: Benign RECOMMENDATION: Routine screening mammogram in 1 year. A lay language report of this examination will be provided to the patient. Gera Corcoran M.D. Diagnostic Radiologist [email or web address] SP/Dictated by: Gera Corcoran MD @ 04/03/2024 10:26:00 AM (Electronically Signed)
== END 2024-03-26 14:33 | disposition home or self-care (01) ==
LOC: MAMMO 14:33
PROVIDERS: PCP Family Medicine; Visit Provider Family Medicine
DX: Z12.31 Encounter for screening mammogram for malignant neoplasm of breast (principal)
CPT/HCPCS: 77063; 77067

== ENCOUNTER 2024-05-21 10:47 | Outpatient (CLI) | payer MEDICAID, SELFPAY ==
--- OUTSIDE RECORDS SUMMARY | 2024-05-21 10:50 | XMS_ITS | Clinical Summary ---
Author Organization [employer] [facility] [employer] [facility] Address [place], [place] [address] Care Team Providers Care Cell Lead Name Role Phone Gera Mcdowell MD Primary [...] F Vag Livin g Pennij o Delivery Location:[place], [place] 1998 39w 0d 3.4 kg (7 lb 8 oz) M Vag Livin g Matthe w Delivery Location:[place], [place] [address] 39w 0d F Vag IV Meds Livin g Kaylei gh McInty re Delivery Location:[facility] Last Filed Vital Signs Vital Sign Reading Time Taken Comments Blood Pressure 129/85 01/09/2022 11:31 AM CDT Pulse 66 07/16/2023 8:32 AM LINUX SECURITY ADMINISTRATOR Temperature 36 C (96.8 F) 01/09/2022 11:31 AM CDT Respiratory Rate 20 01/09/2022 11:31 AM CDT Oxygen Saturation 95% 07/16/2023 8:32 AM LINUX SECURITY ADMINISTRATOR Inhaled Oxygen Concentration - - Weight 123.8 kg (273 lb) 07/16/2023 8:32 AM LINUX SECURITY ADMINISTRATOR Height 165.1 cm (5' 5) 01/09/2022 11:28 [...] REFLEX MEASURED LDL Routine 07/09/2017 9:57 AM LINUX SECURITY ADMINISTRATOR Screening cholesterol level from Last 3 Months [...] W REFLEX MEASURED LDL (07/09/2017 9:57 AM LINUX SECURITY ADMINISTRATOR) CHOLESTEROL,TOTAL 193 100 - 199 mg/dL 07/09/2017 10:43 AM LINUX SECURITY ADMINISTRATOR [facility] TRIGLYCERIDES 136 <150 mg/dL 07/09/2017 10:43 AM LINUX SECURITY ADMINISTRATOR [facility] HDL CHOLESTEROL 49 >40 mg/dL 8 10:43 AM LINUX SECURITY ADMINISTRATOR [facility] NON-HDL CHOLESTEROL 144 <145 mg/dl 07/09/2017 10:43 AM LINUX SECURITY ADMINISTRATOR [facility] CHOL/HDL RATIO 3.94 <4.50 07/09/2017 10:43 AM LINUX SECURITY ADMINISTRATOR [facility] LDL CHOLESTEROL 117 <=130 mg/dL 07/09/2017 10:43 AM LINUX SECURITY ADMINISTRATOR [facility] PROVIDER ORDERED STATUS RANDOM 07/09/2017 10:43 AM LINUX SECURITY ADMINISTRATOR [facility] Blood BLOOD SPECIMEN / Unknown Venipuncture / Unknown 07/09/2017 9:57 AM LINUX SECURITY ADMINISTRATOR 07/09/2017 9:57 AM LINUX SECURITY ADMINISTRATOR Kandy Malloy NP CHEMISTRY [facility] [address] [place] [address] from Last 3 Months or Most Recently Relevant to Health Maintenance Care Teams Cell Lead Relationship Specialty Start Date End Date Gera Mcdowell MD [address] [place] [address] PCP - General Family Practice 01/09/22
== END 2024-05-21 10:48 | disposition home or self-care (01) ==
PROVIDERS: PCP Family Medicine; Visit Provider Family Medicine
DX: E03.9 Hypothyroidism, unspecified (principal); E55.9 Vitamin D deficiency, unspecified; E66.9 Obesity, unspecified; M81.0 Age-related osteoporosis without current pathological fracture; F41.9 Anxiety disorder, unspecified; Z13.6 Encounter for screening for cardiovascular disorders
CPT/HCPCS: 80048; 80061; 82306; 84443; 85025

== ENCOUNTER 2024-11-18 08:09 | Outpatient (CLI) | payer BC, SELFPAY | END 2024-11-18 08:10 | disposition home or self-care (01) | PROVIDERS: PCP Family Medicine; Visit Provider Family Medicine | DX: E55.9 Vitamin D deficiency, unspecified (principal); E03.9 Hypothyroidism, unspecified; N64.3 Galactorrhea not associated with childbirth | CPT/HCPCS: 82306; 82670; 83001; 83002; 84146; 84443 ==

== ENCOUNTER 2025-02-17 12:30 | Outpatient (CLI) | payer BC, SELFPAY | END 2025-02-17 12:31 | disposition home or self-care (01) | PROVIDERS: PCP Family Medicine; Visit Provider Family Medicine | DX: R10.9 Unspecified abdominal pain (principal); E55.9 Vitamin D deficiency, unspecified; E03.9 Hypothyroidism, unspecified; E66.9 Obesity, unspecified | CPT/HCPCS: 80053; 83690; 85025 ==

== ENCOUNTER 2025-02-26 10:05 | Outpatient (CLI) | payer BC, SELFPAY ==
--- NOTE | 2025-02-26 10:45 | CRLHL7_ITS ---
For Patients: As a result of the Century Cures Act, medical imaging exams and procedure reports are released immediately into your electronic medical record. You may view this report before your referring provider. If you have questions, please contact your health care provider. CLINICAL HISTORY: Abdominal pain COMPARISON: none TECHNIQUE: Real time chu scale imaging and color Doppler analysis was performed of the abdomen. FINDINGS: The liver measures 16.9 cm. Liver echotexture is diffusely increased with patchy areas of sparing noted. The spleen is of normal size. The pancreas is partially obscured. The proximal abdominal aorta and IVC appear normal. There is no evidence of ascites. The gallbladder is of normal size and there are multiple echogenic and shadowing stones within the gallbladder lumen. The gallbladder wall measures 2 mm in thickness. The common bile duct measures 4 mm in size within the phain hepatis. The kidneys appear symmetric. The right kidney measures 10.5 cm in length and the left kidney measures 9.2 cm. There is no evidence of a renal calculus or hydronephrosis. IMPRESSION: Moderate hepatic steatosis. Cholelithiasis. Dictated by Gera Corcoran MD @ 02/26/2025 12:55:58 PM (Electronically Signed)
== END 2025-02-26 10:06 | disposition home or self-care (01) ==
LOC: US 10:06
PROVIDERS: PCP Family Medicine; Visit Provider Family Medicine
DX: R10.9 Unspecified abdominal pain (principal); K76.0 Fatty (change of) liver, not elsewhere classified; K80.20 Calculus of gallbladder without cholecystitis without obstruction
CPT/HCPCS: 76700

== ENCOUNTER 2025-03-23 07:01 | Outpatient (CLI) | payer BC, SELFPAY ==
--- NOTE | 2025-03-23 08:40 | P.ANES_ITS ---
Anesthesia Charges Start Date/Time Anesthesia Start Date: 03/23/25 Anesthesia Start Time: 08:12 Stop Date/Time Anesthesia Stop Date: 03/23/25 Anesthesia Stop Time: 08:37 Coding CPT Codes CPT Codes: ANES UPR GI NDSC PX NOS - 95988 ([id number]) P3 - PATIENT W/SEVERE SYS DISEASE, QK - HAIR WORKER 2-4 CNCRNT ANES PROC, QX - SNOW REMOVAL SUPERVISOR SVC W/ MD MED DIRECTION
--- NOTE | 2025-03-23 08:40 | W.ANESCHARGE ---
Anesthesia Charges Start Date/Time Anesthesia Start Date: 03/23/25 Anesthesia Start Time: 08:12 Stop Date/Time Anesthesia Stop Date: 03/23/25 Anesthesia Stop Time: 08:37 Coding CPT Codes CPT Codes: ANES UPR GI NDSC PX NOS - 64353 ([id number]) P3 - PATIENT W/SEVERE SYS DISEASE, QK - FORESTRY AID 2-4 CNCRNT ANES PROC, QX - STATEMENT CLERK SVC W/ MD MED DIRECTION
--- NOTE | 2025-03-23 08:48 | P.ANES_ITS ---
Anesthesia Charges Start Date/Time Anesthesia Start Date: 03/23/25 Anesthesia Start Time: 08:12 Stop Date/Time Anesthesia Stop Date: 03/23/25 Anesthesia Stop Time: 08:37 Coding CPT Codes CPT Codes: ANES UPR GI NDSC PX NOS - 93434 ([id number]) QK - STAFF ELECTRICAL ENGINEER 2-4 CNCRNT ANES PROC, QX - SHEETMETAL PATTERNMAKER SVC W/ MD MED DIRECTION, P3 - PATIENT W/SEVERE SYS DISEASE
--- NOTE | 2025-03-23 08:48 | W.ANESCHARGE ---
Anesthesia Charges Start Date/Time Anesthesia Start Date: 03/23/25 Anesthesia Start Time: 08:12 Stop Date/Time Anesthesia Stop Date: 03/23/25 Anesthesia Stop Time: 08:37 Coding CPT Codes CPT Codes: ANES UPR GI NDSC PX NOS - 30028 ([id number]) QK - PROGRAM COORDINATOR EXECUTIVE EDUCATION 2-4 CNCRNT ANES PROC, QX - MUTUAL FUND SALES AGENT SVC W/ MD MED DIRECTION, P3 - PATIENT W/SEVERE SYS DISEASE
== END 2025-03-23 07:02 | disposition home or self-care (01) ==
LOC: OP CLINIC 07:04
PROVIDERS: PCP Family Medicine; Visit Provider Surgery
DX: R10.13 Epigastric pain (principal); K44.9 Diaphragmatic hernia without obstruction or gangrene
CPT/HCPCS: 00731; 43239; 88305; 88342; J2704; J3490

== ENCOUNTER 2025-04-13 19:09 | Outpatient (CLI) | payer BC, SELFPAY ==
--- NOTE | 2025-04-13 19:20 | CRLHL7_ITS ---
For Patients: As a result of the Century Cures Act, medical imaging exams and procedure reports are released immediately into your electronic medical record. You may view this report before your referring provider. If you have questions, please contact your health care provider. INDICATION: BILATERAL SCREENING MAMMOGRAM, ASYMPTOMATIC 49 Y/O FEMALE COMPARISON: 03/26/24, 01/27/23, 11/28/21 TECHNIQUE: Digital mammogram in CC and MLO projections including computer-aided detection (CAD) and tomosynthesis. BREAST COMPOSITION: There are scattered areas of fibroglandular density. FINDINGS: No suspicious findings. ASSESSMENT: BI-RADS 1 Negative RECOMMENDATION: Annual screening mammogram. A lay language report of this examination will be provided to the patient. Dictated by: Mercedes Saunders MD @ 04/15/2025 13:40:50 (Electronically Signed)
== END 2025-04-13 19:10 | disposition home or self-care (01) ==
LOC: MAMMO 19:09
PROVIDERS: PCP Family Medicine; Visit Provider Family Medicine
DX: Z12.31 Encounter for screening mammogram for malignant neoplasm of breast (principal)
CPT/HCPCS: 77063; 77067